=== PATIENT | male | born 1945 | race Native Hawaiian/Other Pacific Islander ===

== ENCOUNTER 2022-05-04 08:22 | Day surgery (SDC) | payer OTHER ==
[2022-05-04] MEDS ORDERED: Epinephrine Preservative Free 1 MG/ML IJ ONE (08:23)
[2022-05-04] MEDS ORDERED: LIDOCAINE HCL 1% 50 MG/5 ML VL PF IJ ONE (08:23)
[2022-05-04] MEDS ORDERED: Visionblue IO ONE (08:23)
[2022-05-04] MEDS ORDERED: Lactated Ringers 1,000 ML IV ONE (08:57)
[2022-05-04] MEDS ORDERED: cefUROXime sodium 0.005 GM in Sodium Chloride Flush 30 ML*** 0.5 ML IJ ONE (09:00)
[2022-05-04] MEDS ORDERED: TETRACAINE 0.5% STERI-UNIT SOL OP ONE (09:00)
[2022-05-04] MEDS ORDERED: NON-FORMULARY ITEM OP ONE (09:00)
[2022-05-04] MEDS ORDERED: Ak-Dilate OPHTHALMIC*** 1.065 ML, Cyclogyl 1% OPHTH SOL 1.065 ML, GATIFLOXACIN 0.5% OPH... OP ONE ×4 (09:00)
[2022-05-04] MEDS ORDERED: BETADINE 5% OPHTHALMIC 30 ML OP ONE (09:00)
[2022-05-04] MEDS ORDERED: Lactated Ringers 1,000 ML IV SCH (09:00)
[2022-05-04] MEDS: TETRACAINE 0.5% STERI-UNIT SOL OP ONE ×2 (09:22→09:52)
[2022-05-04] MEDS ORDERED: SUBLIMAZE 100 MCG/2 ML ONE (10:59)
[2022-05-04] MEDS ORDERED: DIPRIVAN 200 MG/20 ML IV ONE ×3 (10:59→11:30)
[2022-05-04] MEDS ORDERED: ACETAZOLAMIDE 250 MG TABLET PO ONE (11:00)
[2022-05-04] MEDS ORDERED: Zofran 4 MG/2 ML VIAL IV PRN (11:00)
[2022-05-04 11:37] VITALS: O2SAT 95
[2022-05-04 11:44] VITALS: BP 114/54; PULSE 78
== END 2022-05-04 11:58 | disposition home or self-care (01) ==
LOC: SDC 08:22
PROVIDERS: ATTEND Ophthalmology
DX: H25.811 Combined forms of age-related cataract, right eye (principal); E11.9 Type 2 diabetes mellitus without complications
CPT/HCPCS: 66982; 82947; 99100; C1780; J0171; J2001; J2704; J3010; A9270-GY

== ENCOUNTER 2022-09-07 08:31 | Day surgery (SDC) | payer OTHER ==
[~2022-09-07 08:31] MED LIST: Ak-Dilate OPHTHALMIC*** 1.065 ML, Cyclogyl 1% OPHTH SOL 1.065 ML, GATIFLOXACIN 0.5% OPH... OP ONE; BETADINE 5% OPHTHALMIC 30 ML OP ONE; Lactated Ringers 1,000 ML IV SCH; NON-FORMULARY ITEM OP ONE; TETRACAINE 0.5% STERI-UNIT SOL OP ONE; cefUROXime sodium 0.005 GM in Sodium Chloride Flush 30 ML*** 0.5 ML IJ ONE
[2022-09-07] MEDS ORDERED: Epinephrine Preservative Free 1 MG/ML IJ ONE (08:32)
[2022-09-07] MEDS ORDERED: Lactated Ringers 1,000 ML IV ONE (08:46)
[2022-09-07] MEDS ORDERED: Zofran 4 MG/2 ML VIAL IV PRN (09:30)
[2022-09-07] MEDS ORDERED: ACETAZOLAMIDE 250 MG TABLET PO ONE (09:30)
[2022-09-07] MEDS ORDERED: APRESOLINE 20 MG/ML INJ IV ONE (09:45)
[2022-09-07] MEDS ORDERED: APRESOLINE 20 MG/ML INJ ONE (09:49)
[2022-09-07] MEDS ORDERED: Xylocaine-Mpf 2% 5 Ml Vial ONE ×2 (10:15→10:50)
[2022-09-07] MEDS ORDERED: DIPRIVAN 200 MG/20 ML IV ONE ×2 (10:15→10:51)
[2022-09-07] MEDS ORDERED: Versed 2 MG/2 ML Injection IV ONE (10:25)
[2022-09-07 11:15] VITALS: O2SAT 96
[2022-09-07 11:25] VITALS: BP 179/69; PULSE 80
== END 2022-09-07 11:42 | disposition home or self-care (01) ==
LOC: SDC 08:31
PROVIDERS: ATTEND Ophthalmology
DX: H25.812 Combined forms of age-related cataract, left eye (principal); E11.9 Type 2 diabetes mellitus without complications
CPT/HCPCS: 82947; 99100; C1780; J0171; J0360; J2250; J2704; A9270-GY